=== PATIENT | female | born 1990 | race Caucasian/White ===

== ENCOUNTER 2017-01-23 04:41 | Emergency (ER) | payer OTHER ==
[~2017-01-23] VITALS: Ht 167.6 cm; Wt 127.0 kg
--- NOTE | 2017-01-23 05:20 | Emergency Room Report ---
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 States wound was initially "gushing". Bleeding now controlled. Unknown last tetanus. Denies reduced range of motion of right ring finger, denies any weakness of the finger. Not sure if any glass is still in the wound. Allergies: Coded Allergies: IODINE (Verified Allergy, Severe, 01/23/17) [place] (Verified Allergy, Severe, 01/23/17) AMOXICILLIN (Verified Allergy, Intermediate, 01/23/17) CLAVULANIC ACID (Verified Allergy, Intermediate, 01/23/17) Uncoded Allergies: SHELLFISH (Allergy, Severe, 01/23/17) Patient History Past Medical History: none Past Surgical History: none Pertinent Family History: none Last Menstrual Period: 01/04/17 Now: No Immunizations: other - Not up to date Reviewed Nursing Documentation: PMH: Agreed, PSxH: Agreed Nursing Documentation-PMH Past Medical History: No Stated History Review of Systems All Other Systems: negative except mentioned in HPI Physical Exam Vital Signs Date Time Temp Pulse Resp B/P (MAP) Pulse Ox O2 Delivery O2 Flow Rate FiO2 01/23/17 04:56 98.2 77 18 100 Room Air Sp02 EP Interpretation: reviewed, normal General Appearance: normal inspection, well appearing, no apparent distress, alert Head: atraumatic ENT: normal ENT inspection, hearing grossly normal, normal voice Neck: normal inspection, full range of motion, supple, no bony tend Respiratory: normal inspection, lungs clear, normal breath sounds, no respiratory distress, no retraction, no wheezing Cardiovascular #1: regular rate, rhythm, no edema Gastrointestinal: normal inspection, normal bowel sounds, non tender, soft, no guarding, no hernia Genitourinary: no CVA tenderness Musculoskeletal: normal inspection, back normal, normal range of motion, Emy' s Sign negative Neurologic: normal inspection, alert, oriented x3, responsive, 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 No FB seen. Very superficial. No reduced ROM Procedures Laceration/Wound Repair Laceration/Wound Repair : Consent: Verbal Wound Location: upper extremity Wound's Depth, Shape: superficial Wound Explored: clean Betadine Prep?: No Wound Repaired With: Dermabond Layer Closure?: No Sterile Dressing Applied?: Yes Patient Tolerated: Well Complications: None Progress 1cm very superficial laceration across PIP joint of right ring finger palmar aspect Dermabond applied Sterile dressing applied Medical Decision Making Diagnostic Impression: Primary Impression: Laceration ER Course Wound irrigated with high-pressure saline No foreign body appreciated Very superficial laceration repaired with Dermabond Tetanus updated ER course: Patient has remained stable during ED stay. Patient is to be discharged to home. Patient is instructed to follow up with their primary care doctor within 5 days. Strict return precautions discussed with patient such as fever, chills, worsening/severe pain, nausea, vomiting, which may indicate severe illness. Patient verbalizes understanding and agrees with plan. Please note that this Emergency Department Report was dictated using [employer] processor technology software, occasionally this can lead to erroneous entry secondary to interpretation by the dictation equipment Last Vital Signs Date Time Temp Pulse Resp B/P (MAP) Pulse Ox O2 Delivery O2 Flow Rate FiO2 01/23/17 04:56 98.2 77 18 100 Room Air Status: improved Disposition: HOME, SELF-CARE HÉCTOR ESPARZA M.D. Jan 23, 2017 05:20
[2017-01-23] MEDS ORDERED: Tetanus/Diptheria/Pertussis Vaccine 0.5ml Syr IM ONE (05:30)
[2017-01-23 05:37] VITALS: BP 138/80
== END 2017-01-23 05:48 | disposition home or self-care (01) ==
LOC: EMR 05:15
DX: S61.214A Laceration without foreign body of right ring finger without damage to nail, initial encounter (principal); Z23 Encounter for immunization; Z91.041 Radiographic dye allergy status; Z88.1 Allergy status to other antibiotic agents; Z88.8 Allergy status to other drugs, medicaments and biological substances; Z91.013 Allergy to seafood; Z91.018 Allergy to other foods; W25.XXXA Contact with sharp glass, initial encounter; Y92.511 Restaurant or cafe as the place of occurrence of the external cause; Y99.0 Civilian activity done for income or pay
CPT/HCPCS: 90471; 90715; 99284